=== PATIENT | male | born 1980 | race Caucasian/White ===

== ENCOUNTER 2017-04-01 19:38 | Emergency (ER) | payer OTHER ==
[~2017-04-01 19:38] MED LIST: BENZONATATE PO; CIPRO PO; NO MEDICATIONS; PERCOCET5/325 PO; PYRIDIUM PO; VICODIN 5/1 TAB 5/50 PO
== END 2017-04-01 22:14 | disposition home or self-care (01) ==
LOC: SED 19:38
DX: F41.9 Anxiety disorder, unspecified (principal); J30.9 Allergic rhinitis, unspecified; F17.200 Nicotine dependence, unspecified, uncomplicated
CPT/HCPCS: 99283